=== PATIENT | male | born 1960 | race Caucasian/White ===

== ENCOUNTER 2016-08-12 07:54 | Emergency (ER) | payer MEDICAID, OTHER ==
[~2016-08-12] VITALS: Ht 172.7 cm; Wt 68.0 kg
[2016-08-12 09:33] LABS: Hematocrit 44.1 % (41.0-53.0); Hemoglobin 14.6 g/dL (13.5-17.5); Mean Corpuscular Hemoglobin 32.5 pg (28.0-32.0); Mean Corpuscular Volume 98.4 fL (80.0-100.0); Mean Platelet Volume 8.3 fL (7.4-10.4); Platelet Count (auto) 147 10^3/uL (140-450); Red Cell Distribution Width 14.8 % (11.6-16.0)
[2016-08-12 09:36] LABS: Metamyelocytes % 0; Myelocytes % 0; Promyelocytes % 0; Reactive Lymphocytes 0
[2016-08-12 09:55] LABS: BUN/Creatinine Ratio 8.2; Bilirubin, Total 0.5 mg/dL (0.2-1.0); Calcium 8.9 mg/dL (8.5-10.1); Potassium 3.8 mmol/L (3.5-5.1); Total Protein 7.6 g/dL (6.4-8.2)
[2016-08-12 10:16] LABS: Platelet Estimate Adequate; RBC Morphology Normal
[2016-08-12 13:58] VITALS: BP 140/55
== END 2016-08-12 12:25 | disposition home or self-care (01) ==
LOC: ER 08:03
DX: F41.9 Anxiety disorder, unspecified (principal); J44.9 Chronic obstructive pulmonary disease, unspecified; F17.210 Nicotine dependence, cigarettes, uncomplicated
CPT/HCPCS: 36415; 71010; 80053; 85007; 85027; 85049; 94761

== ENCOUNTER 2016-08-29 06:14 | Emergency (ER) | payer MEDICAID ==
[~2016-08-29] VITALS: Ht 172.7 cm; Wt 63.5 kg
[2016-08-29 07:11] LABS: Albumin 3.8 g/dL (3.4-5.0); Calcium 9.2 mg/dL (8.5-10.1); Magnesium 1.7 mg/dL (1.6-2.6); Potassium 3.9 mmol/L (3.5-5.1)
[2016-08-29 07:13] LABS: BUN/Creatinine Ratio 18.6
[2016-08-29 07:14] LABS: INR 1.1 (0.9-1.15); Prothrombin Time 11.3 sec (9.37-12.3)
[2016-08-29 07:16] LABS: Bilirubin, Total 0.5 mg/dL (0.2-1.0); Total Protein 7.3 g/dL (6.4-8.2)
[2016-08-29 07:33] LABS: B-Type Natriuretic Peptide 8.49 pg/mL (0-100)
[2016-08-29 07:43] LABS: Basophils # (auto) 0 uL; Basophils % (auto) 0.5 % (0.0-2.0); Eosinophils # (auto) 0.2 uL; Eosinophils % (auto) 2.6 % (0.0-7.0); Hematocrit 44.1 % (41.0-53.0); Hemoglobin 13.9 g/dL (13.5-17.5); Lymphocytes # (auto) 3.2 uL; Lymphocytes % (auto) 41.7 % (10.0-50.0); Mean Corpuscular Hemoglobin 31.3 pg (28.0-32.0); Mean Corpuscular Hgb Conc. 31.6 g/dL (32.0-36.0); Mean Corpuscular Volume 98.9 fL (80.0-100.0); Mean Platelet Volume 8.8 fL (7.4-10.4); Monocytes # (auto) 0.8 uL; Neutrophils # (auto) 3.5 uL; Neutrophils % (auto) 45.2 % (37.0-80.0); Platelet Count (auto) 162 10^3/uL (140-450); Red Cell Distribution Width 14.5 % (11.6-16.0); White Blood Cell 7.7 10^3/uL (4.4-10.8)
[2016-08-29 10:45] VITALS: BP 113/61
[2016-08-29] MEDS ORDERED: ALBUTEROL SULF 2.5 MG/0.5ML(0.5%) NEB SOLN HHN STA (11:03)
[2016-08-29] MEDS ORDERED: IPRATROPIUM BROM 0.5 MG/2.5ML INH SOL NEB ONE (11:15)
[2016-08-29] MEDS ORDERED: methylPREDNISolone SOD SUCC 125 MG/2 ML VL IV ONE (11:15)
== END 2016-08-29 12:49 | disposition home or self-care (01) ==
LOC: ER 06:14
DX: J44.1 Chronic obstructive pulmonary disease with (acute) exacerbation (principal); F17.210 Nicotine dependence, cigarettes, uncomplicated; R07.9 Chest pain, unspecified; R06.2 Wheezing
CPT/HCPCS: 36415; 80053; 83735; 83880; 84484; 85025; 85610; 85730; 93005; 94640; 94761; 96374; 99285; J2930; J7030; 94644

== ENCOUNTER 2016-09-04 00:52 | Emergency (ER) | payer MEDICAID ==
[~2016-09-04] VITALS: Ht 172.7 cm; Wt 63.5 kg
[2016-09-04 01:32] LABS: Basophils # (auto) 0 uL; Eosinophils # (auto) 0.1 uL; Eosinophils % (auto) 1.9 % (0.0-7.0); Hematocrit 41.5 % (41.0-53.0); Hemoglobin 13.2 g/dL (13.5-17.5); Lymphocytes # (auto) 1.7 uL; Lymphocytes % (auto) 34.4 % (10.0-50.0); Mean Corpuscular Hemoglobin 31.6 pg (28.0-32.0); Mean Corpuscular Hgb Conc. 31.9 g/dL (32.0-36.0); Mean Corpuscular Volume 99.1 fL (80.0-100.0); Mean Platelet Volume 8.2 fL (7.4-10.4); Monocytes # (auto) 0.5 uL; Neutrophils # (auto) 2.6 uL; Neutrophils % (auto) 52.7 % (37.0-80.0); Platelet Count (auto) 178 10^3/uL (140-450); Red Cell Distribution Width 14.2 % (11.6-16.0)
[2016-09-04 01:52] LABS: Albumin 3.6 g/dL (3.4-5.0); Anion Gap 7 (5-15); Aspartate Aminotransferase 28 U/L (15-37); BUN/Creatinine Ratio 9.5; Blood Urea Nitrogen 9 mg/dL (7-18); Calcium 8.7 mg/dL (8.5-10.1); Carbon Dioxide 29 mmol/L (21-32); Chloride 98 mmol/L (98-107); GFR African American 106 mL/min; GFR Non-African American 88 mL/min; Glucose 253 mg/dL (74-106); Potassium 4.8 mmol/L (3.5-5.1); Sodium 134 mmol/L (136-145)
[2016-09-04 01:54] LABS: Salicylate 3.1 mg/dL (2.8-20.0)
[2016-09-04 01:55] LABS: Alkaline Phosphatase 131 U/L (45-117); Bilirubin, Total 0.3 mg/dL (0.2-1.0); Total Protein 7.1 g/dL (6.4-8.2)
[2016-09-04 01:59] LABS: Acetaminophen < 2.0 ug/mL (10-30)
[2016-09-04 02:22] LABS: Urine RBC None Seen /hpf (0 - 3)
[2016-09-04 02:37] LABS: Urine Bilirubin Negative (Negative); Urine Blood Negative /uL (Negative); Urine Color Yellow (Yellow); Urine Glucose Normal (Normal); Urine Ketone Negative (Negative); Urine Nitrite Negative (Negative); Urine Urobilinogen Normal (Negative)
[2016-09-04 11:48] VITALS: BP 122/79
[2016-09-04] MEDS ORDERED: ALBUTEROL SULF 2.5 MG/0.5ML(0.5%) NEB SOLN NEB ONE (12:00)
[2016-09-04] MEDS ORDERED: methylPREDNISolone SOD SUCC 125 MG/2 ML VL IM ONE (12:00)
[2016-09-04] MEDS ORDERED: IPRATROPIUM BROM 0.5 MG/2.5ML INH SOL NEB ONE (12:00)
== END 2016-09-04 12:55 | disposition home or self-care (01) ==
LOC: ER 00:54
DX: J44.9 Chronic obstructive pulmonary disease, unspecified (principal); F17.210 Nicotine dependence, cigarettes, uncomplicated
CPT/HCPCS: 36415; 80053; 80320; 80329; 81001; 85025; 94640; 96372; 99284; G0434; J2930; 94644